=== PATIENT | female | born 1975 | race Caucasian/White ===

== ENCOUNTER 2017-03-09 12:46 | Outpatient (CLI) | payer BC | END 2017-03-09 12:47 | disposition home or self-care (01) | LOC: CONVCARE 12:46 | PROVIDERS: ATTEND Orthopaedic Surgery | DX: M79.606 Pain in leg, unspecified (principal); R20.0 Anesthesia of skin; M51.36 Other intervertebral disc degeneration, lumbar region; M51.37 Other intervertebral disc degeneration, lumbosacral region | CPT/HCPCS: 72148 ==

== ENCOUNTER 2017-03-31 13:42 | Day surgery (SDC) | payer BC ==
[2017-03-31] MEDS: DEXAMETHASONE SOD PHOS PF 10 MG/ML SOL IJ ONE ×2 (14:24→14:36)
[2017-03-31] MEDS ORDERED: LIDOCAINE HCL 1% MPF SOL ONE (14:32)
[2017-03-31 14:48] VITALS: TEMP 98.3; O2SAT 95
[2017-03-31 14:49] VITALS: BP 138/89; PULSE 78; RESP 18
== END 2017-03-31 15:06 | disposition home or self-care (01) ==
LOC: SURG 13:42
PROVIDERS: ATTEND Nurse Anesthetist, Certified Registered
DX: M54.5 Low back pain (principal)
CPT/HCPCS: 82962; J1100; J2001

== ENCOUNTER 2017-06-02 13:06 | Day surgery (SDC) | payer BC ==
[2017-06-02] MEDS ORDERED: DEXAMETHASONE SOD PHOS PF 10 MG/ML SOL IJ ONE (13:20)
[2017-06-02 13:56] VITALS: BP 120/75; PULSE 69; RESP 14; TEMP 97.4; O2SAT 99
== END 2017-06-02 14:14 | disposition home or self-care (01) ==
LOC: SURG 13:06
PROVIDERS: ATTEND Nurse Anesthetist, Certified Registered
DX: M48.06 Spinal stenosis, lumbar region (principal)
CPT/HCPCS: 64483; 77003; J1100